=== PATIENT | male | born 1975 | race Caucasian/White ===

== ENCOUNTER 2016-12-28 16:24 | Emergency (ER) | payer MEDICAID ==
[~2016-12-28] VITALS: Ht 185.4 cm; Wt 76.0 kg
[~2016-12-28 16:24] MED LIST: IBUP800T23 PO; NAPR-571 PO
[2016-12-28 16:26] VITALS: BP 118/79; PULSE 72; RESP 16; TEMP 98.2; O2SAT 95
[2016-12-28] MEDS ORDERED: ROBA500T PO (18:40)
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
[2016-12-28] MEDS ORDERED: METHOCARBAMOL 500 MG TAB PO ONE (18:45)
[2016-12-28] MEDS ORDERED: traMADol HCL 50 MG TAB PO ONE (18:45)
== END 2016-12-28 19:10 | disposition home or self-care (01) ==
LOC: NEPB 16:24
DX: M79.1 Myalgia (principal)
CPT/HCPCS: 99283